=== PATIENT | female | born 1995 | race Caucasian/White ===

== ENCOUNTER → 2018-11-21 | Outpatient (CLI) | payer OTHER ==
[~2018-11-21] MED LIST: IOPAMIDOL 76% 100 ML INFUS BTL 100 ML ONE
--- NOTE | 2018-11-21 09:59 | RADIOLOGY IMAGING REPORT ---
FACILITY: [facility] - [place] PATIENT NAME: Lolis Allen : 1995 MR: [id number] V: [id number] EXAM DATE: ORDERING PHYSICIAN: LUCAS HILL TECHNOLOGIST: Location: [facility] - [place] Patient: Lolis Allen : 1995 Visit/Account:[id number] Date of Sevice: 11/21/2018 CT ABDOMEN PELVIS W/ CON HISTORY: Abdomen pain, lymphadenopathy, fatigue TECHNIQUE: Following administration of IV contrast contiguous axial images acquired through the abdom en/pelvis. Coronal and sagittal reformatting also performed.Dose Lowering Technique One of the following dose optimization techniques was utilized in the performance of this exam: Autom ated exposure control; adjustment of the mA and/or kV according to the patient's size; or use of an i terative reconstruction technique. Specific details can be referenced in the facility's radiology C T exam operational policy. CONTRAST: 75 mL Isovue-370 COMPARISON: None. FINDINGS: Visualized lung bases: Negative. Hepatobiliary: Liver is mildly enlarged measuring 18.7 cm in length Spleen: Negative. Adrenals: Negative. Pancreas: Negative. Kidneys ureters or bladder: Negative. Genitalia: Negative. GI: Negative. Vessels/spaces/nodes: There shotty mesenteric lymph nodes present Bones/soft tissues: Negative. Additional findings: None pertinent. IMPRESSION: Liver is mildly enlarged There shotty mesenteric lymph nodes Report Dictated By: Tesha Veras MD at 11/21/2018 9:35 AM Report E-Signed By: Tesha Veras MD at 11/21/2018 9:51 AM WSN:[email or web address]
== END ==
LOC: CT 00:30
PROVIDERS: ATTEND Nurse Practitioner Family
DX: R16.0 Hepatomegaly, not elsewhere classified (principal); R59.1 Generalized enlarged lymph nodes
CPT/HCPCS: 74177; Q9967